=== PATIENT | female | born 1990 | race Caucasian/White ===

== ENCOUNTER 2018-01-12 15:27 | Emergency (ER) | payer SELFPAY ==
[2013-08-24 13:14] VITALS: BMI 39.1
[~2018-01-12 15:27] MED LIST: CREON DR 6,0001 EACH OR; OXYCODONE HCL5 MG OR; PHENERGAN25 M1 OR
== END 2018-01-12 17:16 | disposition home or self-care (01) ==
LOC: D.ER 15:27
DX: S66.911A Strain of unspecified muscle, fascia and tendon at wrist and hand level, right hand, initial encounter (principal); X58.XXXA Exposure to other specified factors, initial encounter; Y93.89 Activity, other specified; Y92.019 Unspecified place in single-family (private) house as the place of occurrence of the external cause; S63.601A Unspecified sprain of right thumb, initial encounter